=== PATIENT | male | born 1970 | race Caucasian/White ===

== ENCOUNTER 2017-06-23 12:34 | Emergency (ER) | payer SELFPAY ==
[~2017-06-23] VITALS: Ht 167.6 cm; Wt 63.5 kg
[~2017-06-23 12:34] MED LIST: AMOXICILLIN500 M2 PO; DARVOCET N 1001 TAB PO; DICLOXACILLIN500 MG PO; KEFLEX500 MG PO; MOTRIN800 MG PO; NAPROSYN500 MG PO; NKHM; VICODIN 5/500 505 MG PO
[2017-06-23] MEDS ORDERED: CHLORZOXAZONE500 M2 PO (13:28)
[2017-06-23] MEDS ORDERED: NAPROSYN500 MG PO (13:28)
== END 2017-06-23 15:50 | disposition home or self-care (01) ==
LOC: ED 12:34
DX: M54.5 Low back pain (principal); F17.200 Nicotine dependence, unspecified, uncomplicated; W00.0XXA Fall on same level due to ice and snow, initial encounter; Y93.89 Activity, other specified; Y92.89 Other specified places as the place of occurrence of the external cause; Y99.8 Other external cause status

== ENCOUNTER 2017-11-12 10:05 | Emergency (ER) | payer SELFPAY ==
[~2017-11-12] VITALS: Wt 63.5 kg
[~2017-11-12 10:05] MED LIST changes: +CHLORZOXAZONE500 M2 PO
[2017-11-12] MEDS ORDERED: NORCO 5-325 TA1 EACH PO (11:16)
== END 2017-11-12 11:23 | disposition home or self-care (01) ==
LOC: ED 10:05
DX: S22.32XA Fracture of one rib, left side, initial encounter for closed fracture (principal); Z98.890 Other specified postprocedural states; W01.0XXA Fall on same level from slipping, tripping and stumbling without subsequent striking against object, initial encounter; Y93.89 Activity, other specified; Y92.89 Other specified places as the place of occurrence of the external cause; Y99.9 Unspecified external cause status

== ENCOUNTER 2018-01-08 12:51 | Emergency (ER) | payer SELFPAY ==
[~2018-01-08] VITALS: Ht 167.6 cm; Wt 63.5 kg
[~2018-01-08 12:51] MED LIST changes: +NORCO 5-325 TA1 EACH PO
[2018-01-08] MEDS ORDERED: Tobrex Ophth S2.5 ML OPH (14:11)
[2018-01-08] MEDS ORDERED: IBUPROFEN600 MG PO (14:11)
== END 2018-01-08 14:22 | disposition home or self-care (01) ==
LOC: ED 12:51
DX: S05.01XA Injury of conjunctiva and corneal abrasion without foreign body, right eye, initial encounter (principal); Z98.890 Other specified postprocedural states; X58.XXXA Exposure to other specified factors, initial encounter; Y93.89 Activity, other specified; Y92.488 Other paved roadways as the place of occurrence of the external cause; Y99.8 Other external cause status

== ENCOUNTER 2019-08-15 08:22 | Emergency (ER) | payer SELFPAY ==
[~2019-08-15] VITALS: Ht 167.6 cm; Wt 63.5 kg
[~2019-08-15 08:22] MED LIST changes: +IBUPROFEN600 MG PO; +Tobrex Ophth S2.5 ML OPH
[2019-08-15] MEDS ORDERED: TYLENOL325 M1 PO (08:54)
[2019-08-15] MEDS ORDERED: NAPROSYN500 MG PO (08:54)
== END 2019-08-15 09:06 | disposition home or self-care (01) ==
LOC: ED 08:22
DX: S49.91XA Unspecified injury of right shoulder and upper arm, initial encounter (principal); G89.29 Other chronic pain; Z79.899 Other long term (current) drug therapy; Z98.890 Other specified postprocedural states; F17.200 Nicotine dependence, unspecified, uncomplicated; V86.69XA Passenger of other special all-terrain or other off-road motor vehicle injured in nontraffic accident, initial encounter; Y93.89 Activity, other specified; Y92.828 Other wilderness area as the place of occurrence of the external cause; Y99.8 Other external cause status